=== PATIENT | female | born 1965 | race African-American/Black ===

== ENCOUNTER 2019-08-30 21:22 | Emergency (ER) | payer OTHER ==
[~2019-08-30] VITALS: Ht 157.5 cm; Wt 65.3 kg
[2019-08-30 21:34] VITALS: Ht 157.5 cm; Wt 65.3 kg
[2019-08-30 22:25] VITALS: BP 143/93
== END 2019-08-30 22:25 | disposition home or self-care (01) ==
LOC: ED 21:22
DX: G89.29 Other chronic pain (principal); M54.5 Low back pain; M06.851 Other specified rheumatoid arthritis, right hip; Z88.1 Allergy status to other antibiotic agents; Z88.2 Allergy status to sulfonamides
CPT/HCPCS: J1885; J2270

== ENCOUNTER 2019-09-11 18:44 | Emergency (ER) | payer BC ==
[~2019-09-11] VITALS: Ht 157.5 cm; Wt 62.1 kg
[2019-09-11 19:04] VITALS: Ht 157.5 cm; Wt 62.1 kg
[2019-09-11 20:18] VITALS: BP 102/73
== END 2019-09-11 20:18 | disposition home or self-care (01) ==
LOC: ED 18:44
DX: M54.5 Low back pain (principal); G89.29 Other chronic pain; Z88.1 Allergy status to other antibiotic agents; Z88.2 Allergy status to sulfonamides
CPT/HCPCS: J1885; J2270